=== PATIENT | male | born 2000 | race Caucasian/White ===

== ENCOUNTER 2023-06-28 12:20 | Emergency (ER) | payer OTHER ==
[2023-06-28 12:31] VITALS: BP 108/71; PULSE 65; RESP 18; TEMP 98; BMI 22.7
== END 2023-06-28 16:05 | disposition home or self-care (01) ==
LOC: JERFT 12:20
DX: K62.89 Other specified diseases of anus and rectum (principal); K64.8 Other hemorrhoids
CPT/HCPCS: 36415; 72192-TC; 74018-TC-FY; 82272; 99285-25

== ENCOUNTER 2023-06-29 21:19 | Emergency (ER) | payer OTHER ==
[2023-06-29 21:23] VITALS: BMI 22.5
[2023-06-29] MEDS ORDERED: IOHEXOL (OMNIPAQUE PO) 12 MG/ML - 500 ML BOTTLE PO ONE (23:14)
[2023-06-29 23:36] LABS: BASO % 0.2 % (0-2.0); EOS % 0.5 % (0-4.5); HEMATOCRIT 46.1 % (35.4-49); HEMOGLOBIN 15.4 GM/dL (11.7-16.9); LYMPH % 18.8 % (8-40); MCH 30.6 pg (25.7-33.7); MCHC 33.5 g/dl (32.0-35.9); MEAN CELL VOLUME 91.4 fl (80-96); MEAN PLT VOLUME 7.7 fl (7.5-11.1); MONO % 8.6 % (3.8-10.2); NEUT % 71.9 % (42.8-82.8); PLATELET COUNT 258 10^3/uL (134-434); RBC 5.04 M/mm3 (4.00-5.60); RDW 13.4 % (11.9-15.9); WHITE BLOOD COUNT 13.3 K/mm3 (4.0-10.0)
[2023-06-30] LABS: POTASSIUM 4.1 mmol/L (3.5-5.1)
[2023-06-30 00:02] LABS: BLOOD UREA NITROGEN 11.4 mg/dL (7-18)
[2023-06-30 00:47] VITALS: BP 116/77; PULSE 71; RESP 16
[2023-06-30] MEDS ORDERED: LIDOCAINE HCL 2% JELLY 11 ML TP ONE (04:00)
[2023-06-30] MEDS ORDERED: ACETAMINOPHEN 325 MG TABLET (FP) ONE (04:31)
[2023-06-30] MEDS: ACETAMINOPHEN 500 MG TABLET (FP) PO ONE (04:32)
[2023-06-30 05:07] VITALS: TEMP 98.3
== END 2023-06-30 05:07 | disposition home or self-care (01) ==
LOC: JER 21:19 → JERFT 21:19 → JER 06-30 05:07
DX: M54.9 Dorsalgia, unspecified (principal); T18.5XXD Foreign body in anus and rectum, subsequent encounter
CPT/HCPCS: 36415; 74177-TC; 80048; 85025; 99285-25; Q9967